=== PATIENT | male | born 1990 | race Caucasian/White ===

== ENCOUNTER 2020-11-14 16:09 | Emergency (ER) | payer OTHER, SELFPAY ==
[2020-11-14 18:00] VITALS: BP 127/89; PULSE 80; RESP 14; TEMP 37.2; O2SAT 99
== END 2020-11-14 19:21 | disposition left against medical advice (07) ==
PROVIDERS: Emergency Provider Emergency Medicine; PCP Internal Medicine
DX: R52 Pain, unspecified (principal)
CPT/HCPCS: 99282